=== PATIENT | male | born 1980 | race Caucasian/White ===

== ENCOUNTER 2020-10-09 11:03 | Emergency (ER) | payer MEDICARE, MEDICAID ==
[~2020-10-09] VITALS: Ht 182.9 cm; Wt 90.0 kg
[~2020-10-09 11:03] MED LIST: CYCL-394 PO; TRAM50TA2 PO
[2020-10-09 12:13] VITALS: BP 113/80
[2020-10-09] MEDS ORDERED: orphenadrine citrate 60mg/2ml inj. IM ONE (12:40)
[2020-10-09] MEDS ORDERED: ketorolac tromethamine 15mg/ml inj. IM ONE (12:40)
[2020-10-09] MEDS ORDERED: TRAM50TA2 PO (12:48)
[2020-10-09] MEDS ORDERED: ORPH100T2 PO (12:48)
== END 2020-10-09 12:58 | disposition home or self-care (01) ==
LOC: ER 11:04
DX: G89.29 Other chronic pain (principal); M54.42 Lumbago with sciatica, left side; Z87.442 Personal history of urinary calculi; F12.90 Cannabis use, unspecified, uncomplicated; Z72.89 Other problems related to lifestyle; Z98.890 Other specified postprocedural states; Z88.1 Allergy status to other antibiotic agents; Z79.899 Other long term (current) drug therapy
CPT/HCPCS: 96372; 99284; J1885; J2360

== ENCOUNTER 2020-10-27 02:42 | Emergency (ER) | payer MEDICARE, MEDICAID ==
[~2020-10-27] VITALS: Ht 182.9 cm; Wt 90.9 kg
[~2020-10-27 02:42] MED LIST changes: +ORPH100T2 PO
[2020-10-27] MEDS ORDERED: ondansetron/PF 4mg/2ml inj IV ONE (02:55)
[2020-10-27] MEDS ORDERED: ketorolac trometh. 30mg/ml inj. IV ONE (02:55)
[2020-10-27 03:12] LABS: BASOPHILS % (AUTO) 0.2 % (0-1); EOSINOPHILS # (AUTO) 0.1 X10'3 (0-0.9); EOSINOPHILS % (AUTO) 0.8 % (0-6); HEMATOCRIT 46.1 % (42.0-52.0); HEMOGLOBIN 15.6 g/dl (14.0-17.9); LYMPHOCYTES # (AUTO) 2.7 X10'3 (1.1-4.8); LYMPHOCYTES % (AUTO) 19.1 % (21-51); MEAN CORPUSCULAR HEMOGLOBIN 31.3 PG (27.0-31.0); MEAN CORPUSCULAR HGB CONC 33.8 g/dL (33.0-36.5); MEAN CORPUSCULAR VOLUME 92.7 FL (78-98); MEAN PLATELET VOLUME 8.3 FL (7.4-10.4); MONOCYTES # (AUTO) 0.9 X10'3 (0-0.9); MONOCYTES % (AUTO) 6.6 % (2-12); NEUTROPHILS # (AUTO) 10.4 X10'3 (1.8-7.7); NEUTROPHILS % (AUTO) 73.3 % (42-75); PLATELET COUNT 215 X10'3 (140-440); RED BLOOD COUNT 4.98 X10'6 (4.70-6.10); RED CELL DISTRIBUTION WIDTH 13.2 % (11.5-14.5); WHITE BLOOD COUNT 14.3 X10'3 (4.5-11.0)
[2020-10-27 03:23] LABS: ALANINE AMINOTRANSFERASE 33 U/L (12-78); ALBUMIN 4.3 G/DL (3.4-5.0); ALBUMIN/GLOBULIN RATIO 1.2 (1.1-1.5); ALKALINE PHOSPHATASE 59 IU/L (46-116); AMYLASE 85 U/L (25-115); ANION GAP 13 (8-16); ASPARTATE AMINO TRANSFERASE 25 U/L (10-37); BILIRUBIN,TOTAL 0.3 MG/DL (0.1-1.0); BLOOD UREA NITROGEN 20 MG/DL (7-18); BUN/CREATININE RATIO 17.7 (5.4-32.0); CHLORIDE 103 MMOL/L (99-107); CREATININE 1.13 MG/DL (0.60-1.10); GLUCOSE 120 MG/DL (70-104); LIPASE 141 U/L (73-393); POTASSIUM 3.9 MMOL/L (3.5-5.1); SODIUM 138 MMOL/L (135-145); TOTAL CARBON DIOXIDE 21.7 MMOL/L (24-32); TOTAL PROTEIN 7.8 G/DL (6.4-8.2); eGFR 72 ML/MIN
[2020-10-27] MEDS ORDERED: normal saline 1000ml 1,000 ML IV ONE (03:40)
[2020-10-27] MEDS ORDERED: tamsulosin 0.4mg capsule PO ONE (03:40)
[2020-10-27] MEDS ORDERED: ONDA4TAB6 PO (06:01)
[2020-10-27] MEDS ORDERED: FLO0.4C PO (06:01)
[2020-10-27] MEDS ORDERED: HYDR-3965 PO (06:01)
[2020-10-27 07:02] LABS: CLARITY,URINE CLEAR (Clear); COLOR,URINE YELLOW (Yellow); GLUCOSE, URINE NEGATIVE (Neg); KETONES,URINE 40 mg/dl (Neg); LEUKOCYTE ESTERASE ,URINE NEGATIVE (Neg); NITRITES, URINE NEGATIVE (Neg); OCCULT BLOOD,URINE LARGE (Neg); PH,URINE 5.5 (4.8-8.0); PROTEIN,URINE NEGATIVE (Neg); UROBILINOGEN,URINE 0.2 E.U/dL (0.2-1.0)
[2020-10-27 07:04] LABS: UA COLLECTION TYPE URINAL
[2020-10-27 07:12] LABS: BACTERIA,URINE FEW /HPF (Neg); HYALINE CASTS 0-3 /LPF (NEGATIVE); MUCUS STRANDS MODERATE /LPF (Neg); RBC,URINE 20-50 /HPF (0-2); SQUAMOUS EPITHELIAL CELL,UR FEW /LPF (FEW); TRANSITIONAL EPI CELLS,URINE FEW /HPF; WBC,URINE 0-4 /HPF (0-4)
--- NOTE | 2020-10-27 07:36 | NUR ---
Pt resting quietly. Respirations unlabored. NAD
[2020-10-27 07:56] VITALS: BP 115/80
== END 2020-10-27 07:58 | disposition home or self-care (01) ==
LOC: ER 02:42
DX: N20.0 Calculus of kidney (principal); R10.30 Lower abdominal pain, unspecified; R11.0 Nausea; G89.29 Other chronic pain; F12.90 Cannabis use, unspecified, uncomplicated; Z87.442 Personal history of urinary calculi; Z98.890 Other specified postprocedural states; Z88.1 Allergy status to other antibiotic agents; Z79.899 Other long term (current) drug therapy
CPT/HCPCS: 36415; 74176; 80053; 81001; 82150; 83690; 85025; 96361; 96374; 96375; 99285; J1885; J2405; J7030

== ENCOUNTER 2020-10-30 19:13 | Emergency (ER) | payer MEDICARE, MEDICAID ==
[~2020-10-30] VITALS: Ht 182.9 cm; Wt 90.9 kg
[~2020-10-30 19:13] MED LIST changes: +FLO0.4C PO; +HYDR-3965 PO; +ONDA4TAB6 PO
[2020-10-30 19:18] VITALS: BP 118/68
== END 2020-10-30 21:41 | disposition home or self-care (01) ==
LOC: ER 19:13
DX: M79.2 Neuralgia and neuritis, unspecified (principal); M79.602 Pain in left arm; G89.29 Other chronic pain; F12.90 Cannabis use, unspecified, uncomplicated; Z87.442 Personal history of urinary calculi; Z72.89 Other problems related to lifestyle; Z98.890 Other specified postprocedural states; Z88.1 Allergy status to other antibiotic agents; Z79.899 Other long term (current) drug therapy
CPT/HCPCS: 99281